=== PATIENT | female | born 1970 | race Caucasian/White ===

== ENCOUNTER 2017-06-24 10:56 | Emergency (ER) | payer OTHER ==
[~2017-06-24] VITALS: Ht 157.5 cm; Wt 75.3 kg
[~2017-06-24 10:56] MED LIST: PEPCID40 MG PO; ZOFRAN4 MG PO
[2017-06-24] MEDS ORDERED: MECLIZINE HCL25 MG PO (16:03)
== END 2017-06-24 21:48 | disposition home or self-care (01) ==
LOC: ER 10:56
DX: K52.9 Noninfective gastroenteritis and colitis, unspecified (principal); R42 Dizziness and giddiness

== ENCOUNTER 2018-01-16 07:32 | Outpatient (CLI) | payer OTHER ==
[~2018-01-16 07:32] MED LIST changes: +MECLIZINE HCL25 MG PO
== END 2018-01-16 07:48 | disposition home or self-care (01) ==
LOC: LAB 07:32
DX: E11.65 Type 2 diabetes mellitus with hyperglycemia (principal); D68.8 Other specified coagulation defects; E78.2 Mixed hyperlipidemia; Z12.11 Encounter for screening for malignant neoplasm of colon; N39.0 Urinary tract infection, site not specified; E03.8 Other specified hypothyroidism; D64.89 Other specified anemias

== ENCOUNTER 2018-01-19 08:08 | Outpatient (CLI) | payer OTHER | END 2018-01-19 08:15 | disposition home or self-care (01) | LOC: LAB 08:08 | DX: E11.65 Type 2 diabetes mellitus with hyperglycemia (principal); D68.8 Other specified coagulation defects; E78.2 Mixed hyperlipidemia; Z12.11 Encounter for screening for malignant neoplasm of colon; N39.0 Urinary tract infection, site not specified; E03.8 Other specified hypothyroidism; D64.89 Other specified anemias ==

== ENCOUNTER 2018-06-29 17:57 | Emergency (ER) | payer OTHER ==
[~2018-06-29] VITALS: Ht 165.1 cm; Wt 79.4 kg
== END 2018-06-29 21:50 | disposition home or self-care (01) ==
LOC: ER 17:57
DX: M75.51 Bursitis of right shoulder (principal); M54.2 Cervicalgia

== ENCOUNTER 2018-07-05 09:56 | Emergency (ER) | payer OTHER ==
[~2018-07-05] VITALS: Ht 165.1 cm; Wt 79.4 kg
[2018-07-05] MEDS ORDERED: NORFLEX100MG (10:03)
[2018-07-05] MEDS ORDERED: CELEBREX50 MG (10:04)
[2018-07-05] MEDS ORDERED: KETO10TA2 PO (12:55)
[2018-07-05] MEDS ORDERED: MEDROLPACK PO (12:55)
== END 2018-07-05 14:00 | disposition home or self-care (01) ==
LOC: ER 09:56
DX: M54.2 Cervicalgia (principal); M25.511 Pain in right shoulder

== ENCOUNTER 2023-08-22 10:19 | Outpatient (CLI) | payer OTHER ==
[~2023-08-22 10:19] MED LIST changes: +CELEBREX50 MG; +KETO10TA2 PO; +MEDROLPACK PO; +NORFLEX100MG
[2023-08-22 12:04] LABS: HEMOGLOBIN 12.9 g/dL (12.0-15.00); MEAN CELL VOLUME 82.5 fL (80.00-100.00); MEAN CORPUSCULAR HEMOGLOBIN 27.3 pg (27.00-32.0); MEAN CORPUSCULAR HGB CONC 33.1 g/dl (32.0-36.0); PLATELET COUNT 153 K/uL (150-450); RED BLOOD COUNT 4.72 M/uL (4.00-6.00); RED CELL DISTRIBUTION WIDTH 12.5 % (11.5-14.5)
[2023-08-22 12:12] LABS: PH,URINE 5.5 (5.0-8.0); URINE APPEARANCE Clear; URINE BILIRRUBIN Negative (NEGATIVE); URINE BLOOD Negative; URINE COLOR Yellow; URINE GLUCOSE Negative (NEGATIVE); URINE LEUKOCYTE Trace; URINE NITRATE Negative; URINE PROTEIN Negative (NEGATIVE)
[2023-08-22 12:15] LABS: URINE BACTERIA 614.8 uL (0.0-1933); URINE EPITHELIAL CELLS 10.3 uL (0.0-38.8); URINE RBC 4.4 uL (0.0-20.8); URINE WBC 8.3 uL (0.0-23.2)
[2023-08-22 12:35] LABS: INR 0.98; PARTIAL THROMBOPLASTIN TIME 26.8 SECONDS (22.0-34.0); PROTHROMBIN TIME 10.3 SECONDS (9.0-11.5)
[2023-08-22 12:41] LABS: ALBUMIN 4.2 gm/dL (3.4-5.0); ALKALINE PHOSPHATASE 105 U/L (50-136); ALT/SGPT 26 U/L (12-78); ANION GAP 8 (10.0-20.0); AST/SGOT 12 U/L (15-37); BILIRUBIN TOTAL 0.61 mg/dL (0.3-1.2); BLOOD UREA NITROGEN 13 mg/dL (7-18); BUN CREA RATIO 19 (7.0-25.0); CALCIUM 9.6 mg/dL (8.5-10.1); CARBON DIOXIDE 31 mEq/L (21-32); CHLORIDE 110 mmol/L (98-107); CHOL HDL RATIO 2.3 (0-5.0); CHOLESTEROL 121 mg/dL (0-200); CREATININE SERUM 0.68 mg/dL (0.55-1.02); FREE TRIODOTIRONINE 2.89 pg/ml (2.18-3.98); GFR 89.83; GLOBULINA 3.5 G/DL (2.4-3.5); GLUCOSE FASTING 85 mg/dL (65-100); HDL 53 mg/dl (40-60); LDL 53 mg/dl (0-130); MANUAL PLATELET COUNT 236; OSMOLALITY SERUM 288 MOSM/KG (275-295); POTASSIUM 3.61 mEq/L (3.5-5.1); SODIUM 145 mmol/L (136-145); T4 FREE 1.16 NG/ML (0.76-1.46); TOTAL PROTEIN 7.7 gm/dL (6.4-8.2); TRIGLYCERIDES 77 mg/dL (0-150); VLDL 15 (0-39)
[2023-08-22 12:52] LABS: C-REACTIVE PROTEIN < 0.29 MG/DL (0.00-0.29)
[2023-08-24 13:22] LABS: FOLIC ACID > 20.00 ng/ml (4.78-20)
== END 2023-08-22 10:33 | disposition home or self-care (01) ==
LOC: LAB 10:19
PROVIDERS: ATTEND Specialist
DX: M00.80 Arthritis due to other bacteria, unspecified joint (principal); D64.89 Other specified anemias; E03.8 Other specified hypothyroidism; Z13.220 Encounter for screening for lipoid disorders; R07.89 Other chest pain; E11.21 Type 2 diabetes mellitus with diabetic nephropathy; E11.69 Type 2 diabetes mellitus with other specified complication; N39.9 Disorder of urinary system, unspecified; R19.5 Other fecal abnormalities; R89.8 Other abnormal findings in specimens from other organs, systems and tissues